=== PATIENT | female | born 1955 | race Caucasian/White ===

== ENCOUNTER 2023-04-30 23:27 | Inpatient (IN) | payer MEDICARE, OTHER ==
[~2023-04-30] VITALS: Ht 162.6 cm; Wt 68.0 kg
[2023-05-01 01:02] LABS: BASOPHILS # (AUTO) 0.1 K/uL (0.0-0.2); BASOPHILS % (AUTO) 1.1 % (0.0-2.0); EOSINOPHILS % (AUTO) 5.1 % (0.0-6.0); HEMATOCRIT 32 % (33-45); HEMOGLOBIN 10.8 g/dL (11.5-14.8); LYMPHOCYTES # (AUTO) 2.2 K/uL (0.8-4.8); LYMPHOCYTES % (AUTO) 41.2 % (20.0-44.0); MEAN CORPUSCULAR HGB CONC 34 g/dl (31.0-36.0); MEAN CORPUSCULAR VOLUME 90 fL (82-100); MONOCYTES # (AUTO) 0.4 K/uL (0.1-1.30); MONOCYTES % (AUTO) 8.1 % (2.0-12.0); NEUTROPHILS # (AUTO) 2.3 K/uL (1.8-8.9); NEUTROPHILS % (AUTO) 44.5 % (43.0-81.0); PLATELET COUNT (AUTO) 247 K/uL (150-450); WHITE BLOOD COUNT (AUTO) 5.2 K/uL (4.3-11.0)
[2023-05-01 01:12] LABS: ALANINE AMINOTRANSFERASE 24 U/L (12-78); ALBUMIN 3.4 g/dL (3.4-5.0); ALCOHOL, BLOOD < 3 mg/dL (0-10); ALKALINE PHOSPHATASE 107 U/L (46-116); ASPARTATE AMINOTRANSFERASE 24 U/L (15-37); BILIRUBIN,DIRECT 0.1 mg/dL (0.0-0.2); BILIRUBIN,TOTAL 0.5 mg/dL (0.2-1.0); CALCIUM, SERUM 9.1 mg/dL (8.5-10.1); CARBON DIOXIDE 27 mmol/L (21-32); CHLORIDE 103 mmol/L (98-107); CREATININE 0.8 mg/dL (0.6-1.3); GLUCOSE 95 mg/dL (74-106); SODIUM SERUM 136 mmol/L (136-145); TOTAL PROTEIN, SERUM 6.9 g/dL (6.4-8.2); UREA NITROGEN, BLOOD 13 mg/dL (7-18)
[2023-05-01 01:43] LABS: BILIRUBIN,URINE NEGATIVE (NEGATIVE); COLOR,URINE YELLOW (YELLOW); LEUKOCYTE ESTERASE ,URINE 2+ (NEGATIVE); NITRITE, URINE NEGATIVE (NEGATIVE); PH,URINE 6.5 (5.0-8.0); PROTEIN,URINE NEGATIVE (NEGATIVE); UGLUCOSE NEGATIVE (NEGATIVE)
[2023-05-01 02:28] LABS: BACTERIA,URINE Rare /HPF (None Seen); RBC,URINE 0-2 /HPF (0-2); SQUAMOUS EPITHELIAL CELL,UR Few /HPF (None Seen)
--- NOTE | 2023-05-01 05:22 | NUR ---
PATIENT BEING TRANSFERRED TO [facility] VIA EMT
--- NOTE | 2023-05-01 05:40 | NUR ---
REPORT GIVEN TO KING DAVIS
--- NOTE | 2023-05-01 06:00 | NUR ---
FAST FOOD ASSISTANT RESTAURANT MANAGER NOTE: ADMITTED A 67Y/O, FEMALE, FROM [facility]. ADMITTED ON A 5150 HOLD FOR GD. PER HOLD, PT. ADMITTED DUE TO INCREASED CONFUSED,DEPRESSION,GD. UPON FACE TO FACE EVALUATION, PATIENT IS ALERT AND ORIENTED X2 ANXIOUS, RESTLESS, DISORGANIZED, CONFUSED.SKIN ASSESSMENT DONE. PATIENT'S RIGHTS WERE DISCUSSED AND BOOKLET WAS GIVEN. CONTACTED DR. ORTIZ AND HOSPITALIST DR. MEAD AND INFORMED THEM OF THE ADMISSION. BED IN LOW AND LOCKED POSITION. VITAL SIGNS REFUSED. PT UNABLE TO SIGN ADMITTING DOCUMENTS D/T AGGRESSIVE BEHAVIOR. SAFETY PRECAUTIONS MAINTAINED. WILL CONTINUE TO MONITOR Q15 MINS FOR MOOD, SAFETY AND BEHAVIOR. Addendum: 05/01/23 at 0742 by MARINO CANNON RN INFORMED THE RESPONSIBLE REPUBLICAN.
[2023-05-01] MEDS ORDERED: MAGNESIUM HYDROXIDE 30 ML UDC PO PRN (06:30)
[2023-05-01] MEDS ORDERED: ACETAMINOPHEN 325 MG TABLET PO PRN (06:30)
[2023-05-01] MEDS ORDERED: BLOOD SUGAR DIAGNOSTIC 1 EACH STRIP IN ONE (06:30)
[2023-05-01] MEDS ORDERED: LORAZEPAM 0.5 MG TABLET PO PRN ×2 (06:30→12:30)
[2023-05-01] MEDS ORDERED: TEMAZEPAM 7.5 MG CAPSULE PO PRN (06:30)
[2023-05-01] MEDS ORDERED: MAG HYDROX/AL HYDROX/SIMETH 30 ML UDC PO PRN (06:30)
[2023-05-01 06:59] VITALS: BP 145/76; TEMP 98; O2SAT 96
--- NOTE | 2023-05-01 07:06 | NUR ---
WILL ENDOURE TO NEXT SHIFT TO CONTINUE DO ADMISSION COMPUTER INTERVENTION, PATIENT BELONGING CONTRABAND AND LEGAL DOCUMENTATION.
[2023-05-01 08:00] VITALS: BP 112/79; TEMP 97.9; O2SAT 97
[2023-05-01] MEDS ORDERED: MELA3TAB41 PO (08:01)
[2023-05-01] MEDS ORDERED: ARIP15TA3 PO (08:01)
[2023-05-01] MEDS ORDERED: ARIP5TAB10 PO (08:01)
[2023-05-01] MEDS ORDERED: MIRT-90 PO (08:01)
[2023-05-01] MEDS ORDERED: CITA40TA22 PO (08:01)
[2023-05-01] MEDS ORDERED: ATOR40TA PO (08:01)
[2023-05-01] MEDS ORDERED: LISI20TA30 PO (08:01)
[2023-05-01] MEDS ORDERED: BENZ2TAB7 PO (08:01)
[2023-05-01] MEDS ORDERED: CLON1TAB12 PO (08:01)
[2023-05-01] MEDS ORDERED: MYRBETRIQ 25 MG PO (08:01)
[2023-05-01 08:06] LABS: CREATININE 0.7 mg/dL (0.6-1.3)
--- NOTE | 2023-05-01 09:00 | NUR ---
RN- NOTES CALLED PATIENT MOTHER LOC ([phone]) AND INFORMED HER OF ADMISSION. ALL QUESTIONS ANSWERED AND PHONE NUMBER OF UNIT PROVIDED.
--- NOTE | 2023-05-01 11:42 | NUR ---
DIONISIO Clinical Note: Pt placed on a 5150 hold for GD. Per hold, pt has been confused and has been tangential. [place] [address]; . DIONISIO spoke with Jesus Manuel cold rolling supervisor who stated that pt is welcomed back. DIONISIO contacted pt's mother Inge ([phone]) and discussed treatment/discharge plan.
--- NOTE | 2023-05-01 11:42 | NUR ---
DIONISIO Initial Discharge Note: [place] [address]; . DIONISIO spoke with Jesus Manuel rigging supervisor who stated that pt is welcomed back. DIONISIO contacted pt's mother Inge ([phone]) and discussed treatment/discharge plan. DIONISIO will work with the MD, family, and treatment team to help coordinate appropriate discharge.
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
--- NOTE | 2023-05-01 11:45 | NUR ---
AGILE SCRUM MASTER: SW CONTACTED PT'S AGILE SCRUM MASTER REJI ([phone]) WHO STATED THAT SHE DOES SEE A CONSTRUCTION ANALYST AT THE [facility] AND THAT SHE HAS BEEN DETERIORATING. SHE STATED THAT PT'S STEP FATHER MIGUEL ÁNGEL HAS BEEN HELPING WITH MEDICATIONS. CM STATED THAT SHE IS UNSURE IF IT IS SAFE FOR HER TO RETURN BACK TO THE RESIDENTIAL UNTIL STABLE. SHE STATED THAT SHE WILL FAX THE MEDICATION LIST TO THIS TRIPE COOKER.
[2023-05-01 16:00] VITALS: BP 124/55; TEMP 97.7; O2SAT 100
[2023-05-01] MEDS: ARIPIPRAZOLE 5 MG TABLET PO SCH (17:53)
[2023-05-01] MEDS: CEPHALEXIN MONOHYDRATE 250 MG CAPSULE PO SCH (17:53)
[2023-05-01 20:00] VITALS: BP 105/62; TEMP 97.5; O2SAT 96
[2023-05-01] MEDS: TRAZODONE 50 MG TABLET PO SCH (21:36)
[2023-05-02] MEDS: CEPHALEXIN MONOHYDRATE 250 MG CAPSULE PO SCH ×4 (00:03→17:20)
[2023-05-02 08:00] VITALS: BP 149/71; TEMP 97.9; O2SAT 99
[2023-05-02 08:20] LABS: CHOLESTEROL 135 mg/dL (<200); HDL CHOLESTEROL 64 mg/dL (40-60); LDL 56 mg/dL (0-99); TRIGLYCERIDES 82 mg/dL (30-150)
--- NOTE | 2023-05-02 08:40 | NUR ---
DIONISIO Family Contact: SW received a call from pt's step father Alex ([phone]) who stated that they just want pt to be safe. He does not have preference in regards to where pt should be placed. He stated she cannot come home because they are elderly and unable to care for her.
[2023-05-02] MEDS: ESCITALOPRAM OXALATE (10 MG) 10 MG TABLET PO SCH (09:30)
[2023-05-02] MEDS: ARIPIPRAZOLE 5 MG TABLET PO SCH ×2 (09:31→17:21)
[2023-05-02 16:00] VITALS: BP 116/55; TEMP 98.2; O2SAT 99
[2023-05-02 20:00] VITALS: BP 126/75; TEMP 98; O2SAT 98
[2023-05-02] MEDS: TRAZODONE 50 MG TABLET PO SCH (21:33)
[2023-05-03] MEDS: CEPHALEXIN MONOHYDRATE 250 MG CAPSULE PO SCH ×5 (00:02→23:30)
[2023-05-03 08:00] VITALS: BP 143/73; TEMP 98; O2SAT 94
[2023-05-03] MEDS: ESCITALOPRAM OXALATE (10 MG) 10 MG TABLET PO SCH (08:04)
[2023-05-03] MEDS: ARIPIPRAZOLE 5 MG TABLET PO SCH ×2 (08:04→17:28)
--- NOTE | 2023-05-03 10:30 | NUR ---
RN Notes: Received pt. in the dining room and interacting with peer. Ate 100% for breakfast and compliant on meds. Pt. is visible in the unit and interacts to peers. Encouraged to verbalize feelings and motivated to attend group activities. Needs attended and will continue to monitor for safety.
[2023-05-03 16:00] VITALS: BP 125/67; TEMP 98; O2SAT 94
--- NOTE | 2023-05-03 19:30 | NUR ---
GPS RN NOTE, RECEIVED PATIENT AWAKE AND IN BED, NO S/S OR COMPLAINTS OF PAIN AT THIS TIME. PATIENT IS DISPLAYING NO S/S OF APPARENT DISTRESS AT THIS TIME. PATIENT BREATHING IS UNLABORED WITH EQUAL RISE AND FALL OF THE CHEST. PATIENT IS ALERT AND ORIENTED X 2 ON ROOM AIR WITH A SPO2 94%. PATIENT IS COMPLAINT WITH MEDICATIONS, PARANOID, ANXIOUS AT TIMES, MAKES NEEDS KNOWN, MOTIVATED TO SELF CARE, AND COOPERATIVE. PATIENT DENIES SUICIDAL AND HOMICIDAL IDEATIONS AT THIS TIME. PATIENT ASSISTED WITH TURNING AND REPOSITIONING Q2HR AND PRN FOR COMFORT AND CIRCULATION. PATIENT HAS NO NEEDS AT THIS TIME. PATIENT EDUCATED ON THE USE OF THE CALL KEYES. PATIENT BED SIDE RAILS UP X 2 FOR SAFETY. PATIENT BED IS LOCKED, LOW, WITH BED ALARM ON. WILL CONTINUE TO MONITOR THIS PATIENT Q15 MINUTES WITH THE HELP OF STAFF TO MAINTAIN SAFETY.
[2023-05-03 20:00] VITALS: BP 151/86; TEMP 98.1; O2SAT 98
[2023-05-03] MEDS: ATORVASTATIN 40 MG TABLET PO SCH (21:21)
[2023-05-03] MEDS: TRAZODONE 50 MG TABLET PO SCH (21:21)
[2023-05-04] MEDS: CEPHALEXIN MONOHYDRATE 250 MG CAPSULE PO SCH ×3 (05:17→17:57)
[2023-05-04 08:00] VITALS: BP 121/64; TEMP 97.6; O2SAT 100
[2023-05-04] MEDS: LISINOPRIL (20MG) 20 MG TABLET PO SCH (08:35)
[2023-05-04] MEDS: ESCITALOPRAM OXALATE (10 MG) 10 MG TABLET PO SCH (08:35)
[2023-05-04] MEDS: ARIPIPRAZOLE 5 MG TABLET PO SCH ×2 (08:35→17:57)
[2023-05-04 16:00] VITALS: BP 126/70; TEMP 97.9; O2SAT 100
[2023-05-04 20:00] VITALS: BP 139/80; TEMP 98.4; O2SAT 95
[2023-05-04] MEDS: TRAZODONE 50 MG TABLET PO SCH (21:25)
[2023-05-04] MEDS: ATORVASTATIN 40 MG TABLET PO SCH (21:25)
[2023-05-05] MEDS: CEPHALEXIN MONOHYDRATE 250 MG CAPSULE PO SCH ×5 (00:17→23:17)
[2023-05-05 08:00] VITALS: BP 124/75; TEMP 97.8; O2SAT 98
[2023-05-05] MEDS: ARIPIPRAZOLE 5 MG TABLET PO SCH ×2 (08:18→17:00)
[2023-05-05] MEDS: ESCITALOPRAM OXALATE (10 MG) 10 MG TABLET PO SCH (08:18)
[2023-05-05] MEDS: LISINOPRIL (20MG) 20 MG TABLET PO SCH (08:18)
[2023-05-05 16:00] VITALS: BP 110/60; TEMP 98; O2SAT 98
--- NOTE | 2023-05-05 19:30 | NUR ---
GPS RN NOTE, RECEIVED PATIENT AWAKE AND IN BED, NO S/S OR COMPLAINTS OF PAIN AT THIS TIME. PATIENT IS DISPLAYING NO S/S OF APPARENT DISTRESS AT THIS TIME. PATIENT BREATHING IS UNLABORED WITH EQUAL RISE AND FALL OF THE CHEST. PATIENT IS ALERT AND ORIENTED X 2 ON ROOM AIR WITH A SPO2 98%. PATIENT IS COMPLAINT WITH MEDICATIONS, PARANOID, ANXIOUS AT TIMES, MAKES NEEDS KNOWN, MOTIVATED TO SELF CARE, AND COOPERATIVE. PATIENT DENIES SUICIDAL AND HOMICIDAL IDEATIONS AT THIS TIME. PATIENT ASSISTED WITH TURNING AND REPOSITIONING Q2HR AND PRN FOR COMFORT AND CIRCULATION. PATIENT HAS NO NEEDS AT THIS TIME. PATIENT EDUCATED ON THE USE OF THE CALL KEYES. PATIENT BED SIDE RAILS UP X 2 FOR SAFETY. PATIENT BED IS LOCKED, LOW, WITH BED ALARM ON. WILL CONTINUE TO MONITOR THIS PATIENT Q15 MINUTES WITH THE HELP OF STAFF TO MAINTAIN SAFETY.
[2023-05-05 21:19] VITALS: BP 104/53; TEMP 98.3; O2SAT 97
[2023-05-05] MEDS: TRAZODONE 50 MG TABLET PO SCH (21:29)
[2023-05-05] MEDS: ATORVASTATIN 40 MG TABLET PO SCH (21:29)
[2023-05-06] MEDS: CEPHALEXIN MONOHYDRATE 250 MG CAPSULE PO SCH ×3 (05:22→17:14)
[2023-05-06 08:00] VITALS: BP 122/65; TEMP 97.6; O2SAT 98
[2023-05-06] MEDS: ARIPIPRAZOLE 5 MG TABLET PO SCH ×2 (08:45→17:14)
[2023-05-06] MEDS: ESCITALOPRAM OXALATE (10 MG) 10 MG TABLET PO SCH (08:45)
[2023-05-06] MEDS: LISINOPRIL (20MG) 20 MG TABLET PO SCH (08:46)
[2023-05-06 16:00] VITALS: BP 120/73; TEMP 98; O2SAT 97
[2023-05-06 20:00] VITALS: BP 118/71; TEMP 98; O2SAT 97
[2023-05-06] MEDS: ATORVASTATIN 40 MG TABLET PO SCH (21:27)
[2023-05-06] MEDS: TRAZODONE 50 MG TABLET PO SCH (21:27)
[2023-05-07] MEDS: CEPHALEXIN MONOHYDRATE 250 MG CAPSULE PO SCH ×4 (00:10→17:45)
--- NOTE | 2023-05-07 06:46 | NUR ---
RN note: 2134:Patient c/o difficulty stayin asleep,requested and given Ambien 5 mg PO but with no effect. 0021:Patient c/o difficulty falling asleep,restless,anxious,requested and given Ativan 1 mg PO with good effect.
[2023-05-07 08:00] VITALS: BP 115/58; TEMP 97.8; O2SAT 100
[2023-05-07] MEDS: ESCITALOPRAM OXALATE (10 MG) 10 MG TABLET PO SCH (08:18)
[2023-05-07] MEDS: LISINOPRIL (20MG) 20 MG TABLET PO SCH (08:18)
[2023-05-07] MEDS: ARIPIPRAZOLE 5 MG TABLET PO SCH ×2 (08:18→17:44)
--- NOTE | 2023-05-07 13:16 | NUR ---
Court Notification: SW contacted pt's father in law Alex ([phone]) and notified of 5250 hearing.
--- NOTE | 2023-05-07 13:17 | NUR ---
Court Hearing: Patient's court hearing for 9530 was today and it was upheld for GD.
--- NOTE | 2023-05-07 13:26 | NUR ---
DIONISIO Family Contact: DIONISIO contacted pt's step father Alex ([phone]) to discuss treatment/discharge plan and his mailbox was full. Unable to leave a voicemail at this time. Addendum: 05/08/23 at 1000 by DIONISIO DE LA O Correction name is Ramesh
[2023-05-07 16:00] VITALS: BP 115/56; TEMP 97.8; O2SAT 100
--- NOTE | 2023-05-07 18:49 | NUR ---
RN- CLOSING NOTES PATIENT AWAKE, RESTING IN BED, BREATHING EVEN AND NON LABORED WITH NO S/S OF DISTRESS. PATIENT IS COOPERATIVE, DISORIENTED, AND DEPRESSED. PATIENT IS MEDICATION COMPLIANT. DENIES SI/HI AT THIS TIME. WILL CONTINUE TO MONITOR Q 15 MINUTES FOR SAFETY AND BEHAVIOR.
[2023-05-07 20:05] VITALS: BP 116/69; TEMP 97.8; O2SAT 97
[2023-05-07] MEDS: ATORVASTATIN 40 MG TABLET PO SCH (21:34)
[2023-05-07] MEDS: TRAZODONE 50 MG TABLET PO SCH (21:35)
[2023-05-08] MEDS: CEPHALEXIN MONOHYDRATE 250 MG CAPSULE PO SCH ×5 (00:32→23:40)
[2023-05-08 08:00] VITALS: BP 112/73; TEMP 98.7; O2SAT 96
[2023-05-08] MEDS: ARIPIPRAZOLE 5 MG TABLET PO SCH ×2 (08:25→17:06)
[2023-05-08] MEDS: ESCITALOPRAM OXALATE (10 MG) 10 MG TABLET PO SCH (08:25)
[2023-05-08] MEDS: LISINOPRIL (20MG) 20 MG TABLET PO SCH (08:25)
--- NOTE | 2023-05-08 10:00 | NUR ---
DIONISIO Family Contact: DIONISIO contacted pt's step father Ramesh ([phone]) and he was concerned about pt's placement. DIONISIO updated step father.
--- NOTE | 2023-05-08 11:45 | NUR ---
DIONISIO Referral: DIONISIO sent clinicals to [facility] to Kaylah ([phone]) for placement. DIONISIO sent H & P, progress notes, and medication list.
--- NOTE | 2023-05-08 12:21 | NUR ---
SW Facility: DIONISIO received a call from [facility] to Kaylah ([phone]) who stated that pt is accepted.
[2023-05-08 16:00] VITALS: BP 94/66; TEMP 98.5; O2SAT 98
--- NOTE | 2023-05-08 18:38 | NUR ---
END OF SHIFT REPORT PATIENT RESTING IN BED, AWAKE. NO SIGNS OF ACUTE DISTRESS NOTED. STABLE ON ROOM AIR, BREATHING EVEN AND UNLABORED. DENIED ANY PAIN OR DISCOMFORT. PATIENT IS COOPERATIVE, DEPRESSED, ISOLATIVE AT TIMES. DIDN'T WANT TO PARTICIPATE IN GROUP ACTIVITIES. PATIENT COMPLIANT WITH MEDS. AMBULATES AD YASEMIN. SAFETY MEASURE MAINTAINED. WILL ENDORSE TO NEXT SHIFT FOR CONTINUITY OF CARE.
[2023-05-08] MEDS: ATORVASTATIN 40 MG TABLET PO SCH (21:19)
[2023-05-08] MEDS: TRAZODONE 50 MG TABLET PO SCH (21:19)
[2023-05-08 21:42] VITALS: BP 120/65; TEMP 97.8; O2SAT 100
--- NOTE | 2023-05-08 23:00 | NUR ---
VERIFY ANTIBIOTIC CEPHALEXIN 250 MG PO MED WITH COMMIS CHEF. BECAUSE STARTED DATE 05/01/23. ORDERED CONTINUE MED.
[2023-05-09] MEDS: CEPHALEXIN MONOHYDRATE 250 MG CAPSULE PO SCH (05:14)
[2023-05-09 08:00] VITALS: BP 140/78; TEMP 98.1; O2SAT 98
[2023-05-09] MEDS: ARIPIPRAZOLE 5 MG TABLET PO SCH ×2 (08:26→16:31)
[2023-05-09] MEDS: LISINOPRIL (20MG) 20 MG TABLET PO SCH (08:27)
[2023-05-09] MEDS: ESCITALOPRAM OXALATE (10 MG) 10 MG TABLET PO SCH (08:28)
--- NOTE | 2023-05-09 11:34 | NUR ---
SW NOTE: SW SHARED THAT PT IS ACCEPTED AT [facility] AND SHE IS AGREEABLE OF THIS. SHE SPOKE WITH FAMILY AND FAMILY WOULD WANT HER TO THIS FACILITY.
--- NOTE | 2023-05-09 11:38 | NUR ---
SW Family Contact: SW contacted pt's step father Ramesh ([phone]) and spoke to mother Inge stating that she is accepted at [facility] and they would want her to go to this facility instead.
[2023-05-09 16:00] VITALS: BP 116/67; TEMP 98.7; O2SAT 98
[2023-05-09 20:00] VITALS: BP 108/65; TEMP 97.5; O2SAT 97
[2023-05-09] MEDS: ATORVASTATIN 40 MG TABLET PO SCH (21:14)
[2023-05-09] MEDS: TRAZODONE 50 MG TABLET PO SCH (21:15)
[2023-05-09] MEDS: GUAIFENESIN/D-METHORPHAN HB 5 ML UDC PO PRN (21:59)
--- NOTE | 2023-05-09 21:59 | NUR ---
GPS RN NOTE, PATIENT HAS A COMPLAINT OF A CHRONIC DRY COUGH AND IS REQUESTING ROBITUSSIN AT THIS TIME. PAGED [facility] AND INFORMED ALDO NOBLE NP OF MY FINDINGS. ALDO NOBLE NP ORDERED ROBITUSSIN DM SYRUP 5ML PO Q4HR PRN. PATIENT VITAL SIGNS ARE STABLE. GAVE ROBITUSSIN DM SYRUP 5ML PO Q4HR PRN ORDERED. WILL REASSESS PATIENT AND I WILL CONTINUE TO MONITOR THIS PATIENT WITH THE HELP OF STAFF.
[2023-05-10 08:00] VITALS: BP 116/68; TEMP 97.6; O2SAT 98
[2023-05-10] MEDS: ARIPIPRAZOLE 5 MG TABLET PO SCH ×2 (08:14→16:47)
[2023-05-10] MEDS: ESCITALOPRAM OXALATE (10 MG) 10 MG TABLET PO SCH (08:14)
[2023-05-10] MEDS: LISINOPRIL (20MG) 20 MG TABLET PO SCH (08:15)
[2023-05-10] MEDS: GUAIFENESIN/D-METHORPHAN HB 5 ML UDC PO PRN ×2 (09:13→20:27)
[2023-05-10 16:00] VITALS: BP 111/66; TEMP 97.8; O2SAT 95
[2023-05-10 20:00] VITALS: BP 117/64; TEMP 97.5; O2SAT 98
[2023-05-10] MEDS: TRAZODONE 50 MG TABLET PO SCH (21:29)
[2023-05-10] MEDS: ATORVASTATIN 40 MG TABLET PO SCH (21:29)
--- NOTE | 2023-05-11 07:00 | NUR ---
BOTTOM BRUSHER OPENING NOTE PATIENT AWAKE, ALERT AND ORIENTED X3. PATIENT IS AMBULATING IN THE HALLWAY. STEADY GAIT NOTED. PATIENT DENIES PAIN. NO S/S OF DISCOMFORT NOTED. SAFETY MEASURES IN PLACE: BED LOCKED TO THE LOWEST POSITION, TABLE WITHIN REACH. CONT. TO MONITOR.
[2023-05-11 08:00] VITALS: BP 122/62; TEMP 97.6; O2SAT 97
[2023-05-11] MEDS: ARIPIPRAZOLE 5 MG TABLET PO SCH ×2 (08:24→16:54)
[2023-05-11] MEDS: LISINOPRIL (20MG) 20 MG TABLET PO SCH (08:24)
[2023-05-11] MEDS: ESCITALOPRAM OXALATE (10 MG) 10 MG TABLET PO SCH (08:24)
[2023-05-11 16:00] VITALS: BP 91/57; TEMP 208.4; TEMP 98; O2SAT 96
--- NOTE | 2023-05-11 18:53 | NUR ---
WATER RESOURCES PROJECT MANAGER CLOSING NOTE PATIENT IS RESTING IN BED AT PRESENT, CALM. NO S/S OF DISTRESS NOTED. PATIENT DENIES PAIN OR DISCOMFORT. SAFETY MEASURES IN PLACE: BED LOCKED TO THE LOWEST POSITION, TABLE WITHIN REACH. I WILL ENDORSE TO THE FOLLOWING NURSE FOR [place].
--- NOTE | 2023-05-11 20:15 | NUR ---
NURSE CLINICAL NOTE: RECEIVED PATIENT RESTING IN BED AWAKE,PATIENT ALERT AND ORIENTED X3. BREATHING EVEN AND NON-LABORED.NO SOB.RESIDENT IS DISPLAYING NO S/S OF APPARENT DISTRESS.PATIENT IS CALM ,COOPERATIVE,MED COMPLIANT,SUSPICIOUS,GUARDED WITH STEADY GAIT.PATIENT ASSISTED ON TURNING AND REPOSITIONING Q2H OR PRN FOR CIRCULATION AND COMFORT.ALL NEED ATTENDED TO.BED IN LOWEST,LOCKED POSITION WITH SIDE RAILS UPX2.WILL CONTINUE TO MONITOR Q15 MINS FOR SAFETY AND BEHAVIOR WITH THE HELP OF STAFF.
[2023-05-11] MEDS: TRAZODONE 50 MG TABLET PO SCH (21:06)
[2023-05-11] MEDS: ATORVASTATIN 40 MG TABLET PO SCH (21:06)
[2023-05-12 08:00] VITALS: BP 111/66; TEMP 97.8; O2SAT 97
[2023-05-12] MEDS: LISINOPRIL (20MG) 20 MG TABLET PO SCH (08:04)
[2023-05-12] MEDS: ESCITALOPRAM OXALATE (10 MG) 10 MG TABLET PO SCH (08:04)
[2023-05-12] MEDS: ARIPIPRAZOLE 5 MG TABLET PO SCH ×2 (08:04→16:10)
--- NOTE | 2023-05-12 10:25 | NUR ---
RN Notes: Received pt. awake in bed, responsive to staffs and quiet. Ate 50% for breakfast and compliant on meds. Pt. isolates in room and quiet. Encouraged to verbalize feelings and motivated to attend group activities. Needs attended and will continue to monitor for safety.
[2023-05-12 16:00] VITALS: BP 110/67; TEMP 97.8; O2SAT 96
[2023-05-12 20:00] VITALS: BP 125/81; TEMP 97.6; O2SAT 95
[2023-05-12] MEDS: ATORVASTATIN 40 MG TABLET PO SCH (22:09)
[2023-05-12] MEDS: TRAZODONE 50 MG TABLET PO SCH (22:09)
--- NOTE | 2023-05-13 07:27 | NUR ---
RN NOTES: PT. RESTING IN HER ROOM AND 9 HOURS OF SLEEP ,NO ACUTE DISTRESS NOTED, SAFETY PRECAUTIONS MAINTAINED , NO BEHAVIOR PROBLEMS NOTED, ALL NEEDS ATTENDED AND ANTICIPATED WILL CONTINUITY WITH CARE.
[2023-05-13 08:00] VITALS: TEMP 98; O2SAT 95
[2023-05-13] MEDS: ARIPIPRAZOLE 5 MG TABLET PO SCH ×2 (08:34→17:30)
[2023-05-13] MEDS: ESCITALOPRAM OXALATE (10 MG) 10 MG TABLET PO SCH (08:34)
[2023-05-13] MEDS: LISINOPRIL (20MG) 20 MG TABLET PO SCH (08:35)
[2023-05-13 16:00] VITALS: BP 100/61; TEMP 97.8; O2SAT 99
[2023-05-13] MEDS: ATORVASTATIN 40 MG TABLET PO SCH (21:05)
[2023-05-13] MEDS: TRAZODONE 50 MG TABLET PO SCH (21:05)
[2023-05-13 21:06] VITALS: BP 117/69; TEMP 98; O2SAT 96
[2023-05-14 08:00] VITALS: BP 135/87; TEMP 97.9; O2SAT 98
--- NOTE | 2023-05-14 08:21 | NUR ---
SW Discharge Note: Patient will be discharged to long-term facility, [facility], located at [place] [address] ([phone]). Please arrange ambulance transportation at 1PM. workers compensation claims examiner spoke with Kaylah hurtado ([phone]), who stated patient will be accepted at the facility today. Patients stepfather Ramesh and Mother Inge ([phone]) are aware and agreeable of discharge. Patient is alert and oriented x2 and is unable to plan for self-care. Patient denies any suicidal or homicidal ideation. Patient is aware and agreeable with discharge plans. Patient will follow-up at the facility with Dr. Rodriguez (psychiatrist) [address] [address]; ([phone]) and (Authorization Representative) Dr. Le [address] [facility] [id number], [place] [address]; ([phone]).
[2023-05-14] MEDS: ARIPIPRAZOLE 5 MG TABLET PO SCH (08:48)
[2023-05-14] MEDS: ESCITALOPRAM OXALATE (10 MG) 10 MG TABLET PO SCH (08:48)
[2023-05-14 08:49] VITALS: BP 135/87
[2023-05-14] MEDS: LISINOPRIL (20MG) 20 MG TABLET PO SCH (08:49)
--- NOTE | 2023-05-14 09:30 | NUR ---
RN- DISCHARGE FACILITY NOTES CLARIFIED DISCHARGE FACILITY. PATIENT IS BEING DISCHARGED TO [facility], [address] [place] [address]. Addendum: 05/14/23 at 0931 by CHINTAN VERAS RN Amended: Links added.
--- NOTE | 2023-05-14 13:25 | NUR ---
RN- DISCHARGE NOTES PATIENT DISCHARGED TO [facility], [address] [place] [address], IN STABLE CONDITION. COMPLIANT WITH MEDICATIONS AND COOPERATIVE WITH TREATMENT PLANS. PATIENT DENIES SUICIDAL/HOMICIDAL IDEATION AND AUDITORY/VISUAL HALLUCINATIONS. BEHAVIOR IMPROVED, PSYCHIATRIC TREATMENT PLANS MET, MEDICAL TREATMENT PLANS DEFERRED FOR CONTINUAL MONITORING. PATIENT WITHOUT DISTRESS, CALM, COOPERATIVE, AND VITAL SIGNS TAKEN: B/P 101/66, P 78, R 18, O2 SAT 98% ON ROOM AIR. PATIENT REFUSED PHOTO'S. EDUCATED PATIENT ABOUT EXIT CARE AND COPY PROVIDED. RETURNED ALL PERSONAL BELONGINGS TO PATIENT. MEDICATIONS RECONCILED WITH PSYCHIATRIST DR. ORTIZ AND MED COOKER CASING DR. VAZQUEZ WITH PSYCHIATRIC DISCHARGE ORDER AND CONTINUATION OF MEDICATIONS INCLUDING PRN'S NOTED. REPORT GIVEN TO KING DELGADO AT [facility] FOR CONTINUITY OF CARE. PATIENT SIGNED ALL DISCHARGE PAPERWORK. PATIENT LEFT THE UNIT AT 1325 VIA AMBULANCE ON A GURNEY.
== END 2023-05-14 13:25 | DRG 885 ==
LOC: ER 23:29 → GPS 05-01 05:08
PROVIDERS: ADMIT Psychiatry & Neurology Psychiatry; ATTEND Nurse Practitioner Acute Care
DX: F31.5 Bipolar disorder, current episode depressed, severe, with psychotic features (principal); F03.918 Unspecified dementia, unspecified severity, with other behavioral disturbance; D68.59 Other primary thrombophilia; N39.0 Urinary tract infection, site not specified; Z81.8 Family history of other mental and behavioral disorders; G93.41 Metabolic encephalopathy; B95.1 Streptococcus, group B, as the cause of diseases classified elsewhere; D64.9 Anemia, unspecified; E66.9 Obesity, unspecified; Z68.25 Body mass index [BMI] 25.0-25.9, adult; E78.00 Pure hypercholesterolemia, unspecified; F11.10 Opioid abuse, uncomplicated; Z79.899 Other long term (current) drug therapy; I10 Essential (primary) hypertension
CPT/HCPCS: 36415; 80048-TC; 80061-TC; 80076-TC; 81001; 82565-TC; 82962-TC; 85025-TC; 87081-TC; 87086-TC; G0480